=== PATIENT | female | born 1960 | race Caucasian/White ===

== ENCOUNTER 2017-09-30 16:13 | Emergency (ER) | payer OTHER, MEDICAID, SELFPAY ==
[2017-09-30 16:17] VITALS: BP 149/81; PULSE 70; RESP 14; TEMP 37.3; O2SAT 96; BMI 32.8
--- NOTE | 2017-09-30 16:27 | DI.RAD.S_ITS ---
PROCEDURE: XR CHEST 1V INDICATIONS: chest pain TECHNIQUE: One view of the chest was acquired. COMPARISON: [facility], , CHEST 2 VIEW, 09/19/2015, 10:26. FINDINGS: Surgical changes and devices: None. Lungs and pleura: No pleural effusions or pneumothorax. Lungs are clear. Mediastinum: Mediastinal contours appear normal. Heart size is normal. Bones and chest wall: No suspicious bony lesions. Overlying soft tissues appear unremarkable. IMPRESSION: No acute cardiopulmonary pathology. Dictated by: Franki Caro M.D. on 09/30/2017 at 16:46 Approved by: Franki Caro M.D. on 09/30/2017 at 16:47
[2017-09-30 16:42] LABS: Add Manual Diff / Slide Review NO; Basophils Percent Auto 1.3 % (0-2); Eosinophils Percent Auto 3.8 % (2-4); Hematocrit 43.5 % (36-46); Hemoglobin 15.2 g/dL (12.0-16.0); Lymphocytes Percent Auto 25.8 % (25-40); Mean Corpuscular HGB Conc 34.9 % (30-36); Mean Corpuscular Hemoglobin 30.7 PG (26-34); Mean Corpuscular Volume 87.9 fL (80-100); Monocytes Percent Auto 5.8 % (3-14); Neutrophils Absolute Auto 6800 /uL (3000-5900); Neutrophils Percent Auto 63.3 % (50-75); Platelet Count 320 X10^3/uL (150-400); Red Blood Cell Count 4.95 X10^6/uL (4.0-5.2); Red Cell Distribution Width 13.6 % (11.6-14.8); White Blood Cell Count 10.7 X10^3/uL (4.5-11.0)
[2017-09-30 16:52] LABS: RBC Urine 5-10/HPF (0-5/HPF)
[2017-09-30 16:53] LABS: Amorphous Sediment Urine 2+; Bacteria Urine Many (>30); Culture Indicated Urine Cult Not Indicated; Squamous Epithelial Cell Urine 5-10 /HPF; WBC Urine 1-5/HPF (0-5/HPF)
[2017-09-30 16:59] LABS: Prothrombin Time 11.1 SECONDS (10.1-12.7)
[2017-09-30 17:02] LABS: Alanine Aminotransferase 25 IU/L (9-52); Albumin 4.4 g/dL (3.5-5.0); Albumin Globulin Ratio 1.8 (1.0-2.8); Alkaline Phosphatase 57 U/L (38-126); Aspartate Aminotransferase 24 IU/L (14-36); Bilirubin Total 0.5 mg/dL (0.2-1.3); Blood Urea Nitrogen 14 mg/dL (7-17); Calcium 9.3 mg/dL (8.4-10.2); Carbon Dioxide 26 mmol/L (22-32); Chloride 102 mmol/L (98-107); Creatine Kinase 102 U/L (30-135); Estimated Glomerular Filt Rate > 60.0 mL/min (>60); Globulin 2.4 g/dL (1.7-4.1); Glucose 103 mg/dL (70-100); HEMOLYSIS 35 (0-50); Lipase 107 U/L (23-300); PTT Partial Thromboplastin Tim 25 SECONDS (26.4-36.2); Potassium 3.9 mmol/L (3.4-5.1); Sodium 142 mmol/L (137-145); Total Protein 6.8 g/dL (6.3-8.2)
[2017-09-30 17:17] LABS: CKMB % Relative Index 1.3 % (1.5-5.0); Creatine Kinase MB 1.32 ng/mL (<2.37)
[2017-09-30 17:19] LABS: Troponin I < 0.012 ng/mL (0.01-0.034)
[2017-09-30 17:32] VITALS: BP 126/78; PULSE 60; RESP 25; TEMP 36.7; O2SAT 96
--- NOTE | 2017-09-30 18:42 | ED.CHESTPAIN ---
HPI - Chest Pain General Chief Complaint: Chest Pain Stated Complaint: SENT BY DR RIVAS Time Seen by Provider: 09/30/17 16:20 Source: patient Mode of arrival: ambulatory Limitations: no limitations History of Present Illness HPI narrative: Patient presents to the emergency department today with a chief complaint of sharp and stabbing left-sided chest pain yesterday. Her pain lasted perhaps an hour or so and was very intense, sharp and stabbing and involved her left shoulder. She had period of nausea and was quite sweaty for the duration. She decided to lay down and take a nap upon waking she was largely asymptomatic. She felt well throughout the course of the night and has had no symptoms today. When she called her primary care provider there were no openings and she was directed to the emergency department. She denies other symptoms such as dizziness, weakness or lightheadedness. complaint: chest pain Onset (ago): day(s) Duration: now resolved Onset: during rest Pain location: left chest Severity: mild Quality: sharp Pain radiation: LUE Relieving factors: nothing Exacerbating factors: nothing Context: recent illness Associated symptoms: dyspnea Treatments prior to arrival chest pain: none Related Data Home Medications Medication Instructions Recorded Confirmed No Known Home Medications 09/30/17 09/30/17 Allergies Allergy/AdvReac Type Severity Reaction Status Date / Time ondansetron [ONDANSETRON] Allergy Unknown Verified 09/30/17 16:21 Review of Systems Review of Systems All systems reviewed & are unremarkable except as noted in HPI and below Constitutional Denies chills, Denies fever(s), Denies lethargy and Denies weakness Eyes Denies change in vision, Denies eye discharge, Denies irritation and Denies loss of vision ENT Ears, Nose, Mouth, and Throat: Denies change in voice, Denies neck pain and Denies sore throat Cardiovascular Reports chest pain, Denies irregular heart rhythm, Denies lightheadedness, Denies palpitations, Denies dyspnea, Denies dyspnea on exertion and Denies orthopnea Respiratory Denies cough, Denies dyspnea, Denies dyspnea on exertion and Denies wheezing Gastrointestinal Gastrointestinal: Denies abdominal pain, Denies change in bowel habits, Denies diarrhea, Denies nausea and Denies vomiting Genitourinary Denies hematuria, Denies flank pain, Denies urinary incontinence and Denies urinary urgency Musculoskeletal Denies neck pain Integumentary/Breasts Denies pruritus, Denies erythema, Denies rash and Denies wounds Neurologic Denies confusion, Denies loss of vision and Denies weakness Psychiatric Denies anxiety, Denies confusion, Denies depression, Denies homicidal ideation and Denies suicidal ideation Endocrine Denies palpitations Hematologic/Lymphatic Denies easy bruising Allergic/Immunologic Denies wheezing PFSH Family History Grandmother Cancer Hypertension Hyperlipidemia Mother Age: 76 Hypertension Social History Smoking Status: Current every day smoker Exam Initial Vital Signs Initial Vital Signs: Vital Signs Temperature 99.2 F 09/30/17 16:17 Pulse Rate 70 09/30/17 16:17 Respiratory Rate 14 09/30/17 16:17 Blood Pressure 149/81 H 09/30/17 16:17 Pulse Oximetry 96 09/30/17 16:17 Const General: cooperative and well developed Nutritional Appearance: well nourished Orientation: alert, awake, oriented x3 and not confused HENMT Head: normocephalic and atraumatic Ears: external ears normal and TM's normal bilaterally Nose: external nose normal and No nasal discharge Face and sinus: sinuses nontender, face symmetric, no sinus tenderness and No dry mucous membranes Mouth: oral mucosae normal and moist mucous membranes Teeth and gingiva: dentition normal Throat: tonsils normal and uvula midline Eyes General: appearance normal, both eyes and all related structures Eyelids: eyelids normal Conjunctivae: conjunctivae normal Sclera: sclerae normal Pupils: PERRL EOM: EOM intact bilaterally Neck Neck: normal visual inspection, trachea midline, No lymphadenopathy, No midline deformity and No JVD Lymphatic: No lymphedema Chest Chest: normal inspection of the chest Resp Effort & Inspection: normal respiratory effort, able to speak in complete sentences, no respiratory distress and no use of accessory muscles Auscultation: clear to auscultation bilaterally, no rales, no rhonchi and no wheezes Cardio Rate: regular rate Rhythm: regular rhythm Heart Sounds: no click, no gallops, no murmurs and no rubs Pulses: normal peripheral pulses GI Inspection: non-distended Palpation: soft, no hepatosplenomegaly, No guarding, No pulsatile mass and No tender Auscultation: normal bowel sounds Back/Spine/Pelvis Back: No CVA tenderness Cervical Spine: cervical ROM normal and No pain with cervical ROM Thoracic/Lumbar Spine: thoracic and lumbar spine normal to inspection Skin General: no rashes or lesions noted, No jaundice and No petechiae Neuro General: alert, oriented x3, gait normal and no focal motor deficits Speech: speech normal Extrem General: full ROM, no clubbing, cyanosis or edema, no pedal edema and no calf tenderness Psych Appearance: well kempt Mental Status: mental status grossly normal Attitude: cooperative Thought Content: normal and suicidality Judgment: judgment good Scores HEART Score Heart Score history: Slightly Suspicious Heart Score EKG: Normal Heart Score Age: 45-64 years old Heart Score risk factors: No known risk factors Heart Score troponin: < or = to normal limit Heart Score Total: 1 Course Orders Ordered: Discontinued Medications Aspirin (Aspirin Chew) 324 mg PO NOW ONE Stop: 09/30/17 16:27 Vital Signs - 8 hr 09/30/17 16:17 09/30/17 17:32 Temperature 99.2 F 98.1 F Pulse Rate 70 60 Respiratory Rate 14 25 H Blood Pressure 149/81 H Blood Pressure [Left Arm] 126/78 H Pulse Oximetry 96 96 MDM - Chest Pain Lab Data Result diagrams: 09/30/17 16:35 09/30/17 16:35 Lab Results 09/30/17 09/30/17 09/30/17 Range/Units 16:20 16:35 16:35 WBC 10.7 (4.5-11.0) X10^3/uL RBC 4.95 (4.0-5.2) X10^6/uL Hgb 15.2 (12.0-16.0) g/dL Hct 43.5 (36-46) % MCV 87.9 (80-100) fL MCH 30.7 (26-34) PG MCHC 34.9 (30-36) % RDW 13.6 (11.6-14.8) % Plt Count 320 (150-400) X10^3/uL Neut % (Auto) 63.3 (50-75) % Lymph % (Auto) 25.8 (25-40) % [place] % (Auto) 5.8 (3-14) % Eos % (Auto) 3.8 (2-4) % Baso % (Auto) 1.3 (0-2) % Neut # (Auto) 6800 H (2971-9223) /uL PT 11.1 (10.1-12.7) SECONDS INR 1.0 (0.9-1.3) APTT 25 L (26.4-36.2) SECONDS Sodium (137-145) mmol/L Potassium (3.4-5.1) mmol/L Chloride (98-107) mmol/L Carbon Dioxide (22-32) mmol/L BUN (7-17) mg/dL Creatinine (0.52-1.04) mg/dL Estimated GFR (>60) mL/min BUN/Creatinine Ratio (6-22) Glucose (70-100) mg/dL Calcium (8.4-10.2) mg/dL Total Bilirubin (0.2-1.3) mg/dL AST (14-36) IU/L ALT (9-52) IU/L Alkaline Phosphatase (38-126) U/L Total Creatine Kinase (30-135) U/L CK-MB (CK-2) (<2.37) ng/mL CK-MB (CK-2) Rel Index (1.5-5.0) % Troponin I (0.01-0.034) ng/mL Total Protein (6.3-8.2) g/dL Albumin (3.5-5.0) g/dL Globulin (1.7-4.1) g/dL Albumin/Globulin Ratio (1.0-2.8) Lipase (23-300) U/L Urine RBC 5-10/hpf H (0-5/HPF) Urine WBC 1-5/hpf (0-5/HPF) Ur Squamous Epith Cells 5-10 /hpf H Amorphous Sediment 2+ Urine Bacteria Many (>30) H (None) Ur Culture Indicated? Cult not indicated Micro UA Comment Not Reportable 09/30/17 Range/Units 16:35 WBC (4.5-11.0) X10^3/uL RBC (4.0-5.2) X10^6/uL Hgb (12.0-16.0) g/dL Hct (36-46) % MCV (80-100) fL MCH (26-34) PG MCHC (30-36) % RDW (11.6-14.8) % Plt Count (150-400) X10^3/uL Neut % (Auto) (50-75) % Lymph % (Auto) (25-40) % [place] % (Auto) (3-14) % Eos % (Auto) (2-4) % Baso % (Auto) (0-2) % Neut # (Auto) (0930-7780) /uL PT (10.1-12.7) SECONDS INR (0.9-1.3) APTT (26.4-36.2) SECONDS Sodium 142 (137-145) mmol/L Potassium 3.9 (3.4-5.1) mmol/L Chloride 102 (98-107) mmol/L Carbon Dioxide 26 (22-32) mmol/L BUN 14 (7-17) mg/dL Creatinine 0.70 (0.52-1.04) mg/dL Estimated GFR > 60.0 (>60) mL/min BUN/Creatinine Ratio 20.0 (6-22) Glucose 103 H (70-100) mg/dL Calcium 9.3 (8.4-10.2) mg/dL Total Bilirubin 0.5 (0.2-1.3) mg/dL AST 24 (14-36) IU/L ALT 25 (9-52) IU/L Alkaline Phosphatase 57 (38-126) U/L Total Creatine Kinase 102 (30-135) U/L CK-MB (CK-2) 1.32 (<2.37) ng/mL CK-MB (CK-2) Rel Index 1.3 L (1.5-5.0) % Troponin I < 0.012 (0.01-0.034) ng/mL Total Protein 6.8 (6.3-8.2) g/dL Albumin 4.4 (3.5-5.0) g/dL Globulin 2.4 (1.7-4.1) g/dL Albumin/Globulin Ratio 1.8 (1.0-2.8) Lipase 107 (23-300) U/L Urine RBC (0-5/HPF) Urine WBC (0-5/HPF) Ur Squamous Epith Cells Amorphous Sediment Urine Bacteria (None) Ur Culture Indicated? Micro UA Comment Discharge Plan Departure Patient Disposition: Home Clinical Impression: Atypical chest pain Discharge Date/Time: 09/30/17 19:17 Interventions: ED Discharge Assessment Last Done: 09/30/17 19:17 Instructions: DI for Atypical Chest Pain Activity Restrictions/Additional Instructions: *You have been diagnosed with [ atypical chest pain ] *What to do: * continue to take medications as directed *Follow up with your primary care provider in 2-3 days, call for an appointment. Let them know you were seen in the Emergency Department and that we ask that you be seen in follow up *Return to ER if you should have any new, worsening or concerning symptoms Prescriptions: No Action No Known Home Medications RF: 0
[2017-09-30 19:17] VITALS: BP 115/92; PULSE 62; RESP 18; O2SAT 100
== END 2017-09-30 19:17 | disposition home or self-care (01) ==
PROVIDERS: Emergency Provider Emergency Medicine; Family Provider Family Medicine; PCP Family Medicine
DX: R07.89 Other chest pain (principal)
CPT/HCPCS: 71045; 80053; 81003; 81015; 82550; 82553; 83690; 84484; 85025; 85610; 85730; 93005; 93010; 99282; 99285

== ENCOUNTER 2019-04-10 21:55 | Emergency (ER) | payer OTHER, SELFPAY ==
--- NOTE | 2019-04-10 22:07 | DI.RAD.S_ITS ---
PROCEDURE: XR CHEST 2V INDICATIONS: chest pain TECHNIQUE: 2 views of the chest were acquired. COMPARISON: [facility], , XR CHEST 1V, 09/30/2017, 16:40. FINDINGS: Surgical changes and devices: None. Lungs and pleura: Lungs are clear. No pleural effusions or pneumothorax. Mediastinum: Mediastinal contours are normal. Heart size is normal. Bones and chest wall: No suspicious bony abnormalities. Soft tissues appear unremarkable. IMPRESSION: No evidence acute pulmonary process. Dictated by: Fili Jonas M.D. on 04/11/2019 at 8:20 Approved by: Fili Jonas M.D. on 04/11/2019 at 8:21
[2019-04-10 22:27] VITALS: BP 159/75; PULSE 75; RESP 20; TEMP 37.3; O2SAT 99
[2019-04-10 22:36] LABS: Add Manual Diff / Slide Review NO; Basophils Absolute Auto 100 /uL (0-100); Basophils Percent Auto 0.6 % (0-2); Eosinophils Absolute Auto 500 /uL (0-450); Hemoglobin 15.4 g/dL (12.0-16.0); Lymphocytes Absolute Auto 900 /uL (1100-4500); Lymphocytes Percent Auto 7.9 % (25-40); Mean Corpuscular HGB Conc 34.9 % (30-36); Mean Corpuscular Hemoglobin 30.1 PG (26-34); Mean Corpuscular Volume 86.3 fL (80-100); Monocytes Absolute Auto 500 /uL (0-900); Monocytes Percent Auto 4.8 % (3-14); Neutrophils Absolute Auto 9400 /uL (1500-7000); Neutrophils Percent Auto 82.7 % (50-75); Platelet Count 297 X10^3/uL (150-400); Red Cell Distribution Width 13.8 % (11.6-14.8); White Blood Cell Count 11.4 X10^3/uL (4.5-11.0)
[2019-04-10 22:42] LABS: Alanine Aminotransferase 35 IU/L (<35); Albumin 4.8 g/dL (3.5-5.0); Albumin Globulin Ratio 1.5 (1.0-2.8); Alkaline Phosphatase 59 U/L (38-126); Aspartate Aminotransferase 33 IU/L (14-36); BUN Creatinine Ratio 18.3 (6-22); Bilirubin Total 0.4 mg/dL (0.2-1.3); Blood Urea Nitrogen 11 mg/dL (7-17); Calcium 9.6 mg/dL (8.4-10.2); Carbon Dioxide 29 mmol/L (22-32); Chloride 103 mmol/L (98-107); Estimated Glomerular Filt Rate > 60.0 mL/min (>60); Globulin 3.1 g/dL (1.7-4.1); Glucose 129 mg/dL (70-100); HEMOLYSIS 43 (0-50); Lipase 113 U/L (23-300); Potassium 3.8 mmol/L (3.4-5.1); Sodium 141 mmol/L (137-145); Total Protein 7.9 g/dL (6.3-8.2)
[2019-04-10 22:52] LABS: Influenza A - CEPHEID Flu A NEGATIVE (NEGATIVE); Influenza B - CEPHEID Flu B NEGATIVE (NEGATIVE)
[2019-04-10 22:54] LABS: Troponin I < 0.012 ng/mL (0.01-0.034)
--- NOTE | 2019-04-10 23:08 | ED_ITS ---
HPI - Chest Pain General Chief Complaint: Chest Pain Stated Complaint: states severe chest pain, SOB, also sick Time Seen by Provider: 04/10/19 22:56 Source: patient Mode of arrival: Ambulatory History of Present Illness HPI narrative: 58-year-old otherwise healthy woman presents with chest pain, fever, myalgias and mild diaphoresis. Symptoms started over the course of today and have worsened. Her was recently diagnosed with a viral illness however her symptomatology seems to be different than his. She has a slight dry nonproductive cough. She is slightly nauseated, fevers, cough, no actual emesis or diarrhea. No abdominal pain. She describes feeling of pressure over her chest and a sense that she is dyspneic however oxygen saturations are at 95% or greater on room air. She has no lower extremity edema, and no orthopnea. Related Data Home Medications Medication Instructions Recorded Confirmed No Known Home Medications 09/30/17 11/04/17 Allergies Allergy/AdvReac Type Severity Reaction Status Date / Time ondansetron [ONDANSETRON] Allergy Unknown Verified 11/04/17 11:27 Review of Systems Review of Systems Narrative: All systems reviewed and are unremarkable except as noted in HPI and below Patient History Medical History (Updated 04/11/19 @ 02:25 by Shayna Li MD) No active medical problems (Acute) Social History Smoking Status: Former smoker alcohol intake: current (1 beer/month) Smoking Status: Former smoker alcohol intake frequency: 0-2 drinks per day Substance Use Type: does not use Exam Narrative Exam Narrative: General: Ill appearing but in no acute distress. Able to give a complete and coherent history. Well-nourished well-developed HEENT: Dry mucous membranes, normal sclera with reactive pupils, Neck: No JVD, supple, no cervical adenopathy Respiratory: Lungs are clear to auscultation, no wheezing no rales no rhonchi. Full and symmetrical air movement Cardiac: Regular rate and rhythm no murmurs no bruits Abdomen: Soft nontender good bowel tones, no flank pain Skin: Flushed, dry, no rashes Neurologic: Grossly neurologically intact with no obvious asymmetries or abnormalities Extremities: No trauma, well perfused Psych: Cooperative, appropriate insight and affect Initial Vital Signs Initial Vital Signs: Vital Signs Temperature 99.1 F 02/23/20 22:27 Pulse Rate 75 04/10/19 22:27 Respiratory Rate 20 04/10/19 22:27 Blood Pressure 159/75 H 04/10/19 22:27 Pulse Oximetry 99 04/10/19 22:27 Course Orders Ordered: ED Orders 04/10/19 22:07 XR chest 2V Stat 04/10/19 22:09 EKG-12 Lead Stat 04/10/19 22:15 Influenza A & B (PCR) Stat 04/10/19 22:25 Complete Blood Count AUTO DIFF Stat Comprehensive Metabolic Panel Stat Lipase Stat Troponin I Stat Discontinued Medications Acetaminophen (Tylenol) 325 mg PO NOW ONE Stop: 04/10/19 23:20 Last Admin: 04/10/19 23:47 Dose: 325 mg Documented by: MARINA Ibuprofen (Advil) 400 mg PO NOW ONE Stop: 04/10/19 23:20 Last Admin: 04/10/19 23:46 Dose: 400 mg Documented by: MARINA Metoclopramide HCl (Reglan) 10 mg PO NOW ONE Stop: 04/10/19 23:24 Last Admin: 04/10/19 23:46 Dose: 10 mg Documented by: MARINA Vital Signs Vital signs: Vital Signs - 8 hr 04/10/19 22:27 04/10/19 23:14 Temperature 99.1 F Pulse Rate 75 76 Respiratory Rate 20 26 H Blood Pressure [Left Arm] 159/75 H 169/75 H Pulse Oximetry 99 95 MDM - Chest Pain Lab Data Result diagrams: 04/10/19 22:25 04/10/19 22:25 Labs: Lab Results 04/10/19 04/10/19 04/10/19 Range/Units 22:15 22:25 22:25 WBC 11.4 H (4.5-11.0) X10^3/uL RBC 5.10 (4.0-5.2) X10^6/uL Hgb 15.4 (12.0-16.0) g/dL Hct 44.0 (36-46) % MCV 86.3 (80-100) fL MCH 30.1 (26-34) PG MCHC 34.9 (30-36) % RDW 13.8 (11.6-14.8) % Plt Count 297 (150-400) X10^3/uL Neut % (Auto) 82.7 H (50-75) % Lymph % (Auto) 7.9 L (25-40) % [place] % (Auto) 4.8 (3-14) % Eos % (Auto) 4.0 (2-4) % Baso % (Auto) 0.6 (0-2) % Neut # (Auto) 9400 H (8327-5641) /uL Lymph # (Auto) 900 L (3943-2382) /uL [place] # (Auto) 500 (0-900) /uL Eos # (Auto) 500 H (0-450) /uL Baso # (Auto) 100 (0-100) /uL Sodium 141 (137-145) mmol/L Potassium 3.8 (3.4-5.1) mmol/L Chloride 103 (98-107) mmol/L Carbon Dioxide 29 (22-32) mmol/L BUN 11 (7-17) mg/dL Creatinine 0.60 (0.52-1.04) mg/dL Estimated GFR > 60.0 (>60) mL/min BUN/Creatinine Ratio 18.3 (6-22) Glucose 129 H (70-100) mg/dL Calcium 9.6 (8.4-10.2) mg/dL Total Bilirubin 0.4 (0.2-1.3) mg/dL AST 33 (14-36) IU/L ALT 35 H (<35) IU/L Alkaline Phosphatase 59 (38-126) U/L Troponin I < 0.012 (0.01-0.034) ng/mL Total Protein 7.9 (6.3-8.2) g/dL Albumin 4.8 (3.5-5.0) g/dL Globulin 3.1 (1.7-4.1) g/dL Albumin/Globulin Ratio 1.5 (1.0-2.8) Lipase 113 (23-300) U/L Influenza A (RT-PCR) Flu a negative (NEGATIVE) Influenza B (RT-PCR) Flu b negative (NEGATIVE) Imaging Data Chest x-ray: Attestation: I personally reviewed and interpreted this imaging study as follows: My Impression: No acute changes, no consolidative findings, no hemopneumothorax, normal cardiac silhouette ECG Data Attestation: I personally reviewed and interpreted this ECG as follows: Interpretation: Normal sinus rhythm at a rate of 77. No acute ischemic changes, normal axis normal intervals. MDM Narrative Medical decision making narrative: Patient presents with viral type symptoms without evidence of pneumonia, acute coronary syndrome, pulmonary embolism, pneumothorax or sepsis. Flu swabs are both negative. With myalgias that she is experiencing that are better after ibuprofen a viral syndrome remains most likely explanation. Discharge Plan Departure Patient Disposition: Home Clinical Impression: Acute viral syndrome Discharge Date/Time: 04/10/19 23:58 Instructions: DI for Viral Syndrome Activity Restrictions/Additional Instructions: Thank you for coming in today Your lab work, clinical exam, and chest x-ray also just a viral syndrome. There is no evidence of heart attack, blood clots, collapsed lung, overwhelming pneumonia or other severe infection. You clearly do have a virus. It is going to take 7-10 days for you to completely heal. I would recommend 400 mg of ibuprofen and a Tylenol together every 6 hours to help with fever control as well as the aching all over and chest tightness/pressure that you are experiencing. If you develop new or worsening symptoms or feel that you are not improving or actually getting worse after 5-7 days it would be appropriate to return to the emergency room for further evaluation. I hope you heal quickly Prescriptions: No Action No Known Home Medications RF: 0 Referrals: Bea Fox DO [Primary Care Provider] -
[2019-04-10 23:14] VITALS: BP 169/75; PULSE 76; RESP 26; O2SAT 95
[2019-04-10] MEDS: IBUPROFEN 400 MG TABLET PO (23:46)
[2019-04-10] MEDS: METOCLOPRAMIDE HCL 10 MG TABLET PO (23:46)
[2019-04-10] MEDS: ACETAMINOPHEN 325 MG TABLET PO (23:47)
== END 2019-04-10 23:58 | disposition home or self-care (01) ==
PROVIDERS: Emergency Provider Emergency Medicine; Family Provider Family Medicine; PCP Family Medicine
DX: B34.9 Viral infection, unspecified (principal)
CPT/HCPCS: 71046; 80053; 83690; 84484; 85025; 87502; 93005; 99283; 99285

== ENCOUNTER → 2019-10-12 07:18 | Outpatient (CLI) | payer OTHER, SELFPAY ==
[2019-10-12 08:40] LABS: Add Manual Diff / Slide Review NO; Basophils Absolute Auto 100 /uL (0-100); Basophils Percent Auto 1.2 % (0-2); Eosinophils Absolute Auto 500 /uL (0-450); Eosinophils Percent Auto 6.9 % (2-4); Hematocrit 43.9 % (36-46); Lymphocytes Absolute Auto 1900 /uL (1100-4500); Mean Corpuscular HGB Conc 34.1 % (30-36); Mean Corpuscular Hemoglobin 29.8 PG (26-34); Mean Corpuscular Volume 87.4 fL (80-100); Monocytes Absolute Auto 600 /uL (0-900); Monocytes Percent Auto 7.8 % (3-14); Neutrophils Absolute Auto 4800 /uL (1500-7000); Neutrophils Percent Auto 60.1 % (50-75); Platelet Count 306 X10^3/uL (150-400); Red Blood Cell Count 5.02 X10^6/uL (4.0-5.2); Red Cell Distribution Width 13.6 % (11.6-14.8); White Blood Cell Count 7.9 X10^3/uL (4.5-11.0)
[2019-10-12 08:48] LABS: Alanine Aminotransferase 31 IU/L (<35); Albumin 4.5 g/dL (3.5-5.0); Alkaline Phosphatase 56 U/L (38-126); Aspartate Aminotransferase 27 IU/L (14-36); BUN Creatinine Ratio 18.3 (6-22); Bilirubin Total 0.8 mg/dL (0.2-1.3); Blood Urea Nitrogen 13 mg/dL (7-17); Calcium 9.4 mg/dL (8.4-10.2); Carbon Dioxide 27 mmol/L (22-32); Chloride 105 mmol/L (98-107); Cholesterol 186 mg/dL (140-199); Estimated Glomerular Filt Rate > 60.0 mL/min (>60); Globulin 2.3 g/dL (1.7-4.1); Glucose 97 mg/dL (70-100); HDL Cholesterol 41 mg/dL (40-60); HEMOLYSIS 16 (0-50); LDL Cholesterol Calculated 116 mg/dL (<100); Potassium 4.2 mmol/L (3.4-5.1); Sodium 140 mmol/L (137-145); Total Protein 6.8 g/dL (6.3-8.2); Triglycerides 143 mg/dL (35-150)
[2019-10-12 09:18] LABS: TSH w/ Reflex to FT4 1.93 uIU/mL (0.47-4.68)
== END ==
PROVIDERS: Family Provider Family Medicine; PCP Family Medicine; Referring Provider Family Medicine; Visit Provider Family Medicine
DX: Z13.220 Encounter for screening for lipoid disorders (principal); Z13.228 Encounter for screening for other metabolic disorders; Z76.89 Persons encountering health services in other specified circumstances; Z13.29 Encounter for screening for other suspected endocrine disorder
CPT/HCPCS: 36415; 80053; 80061; 84443; 85025

== ENCOUNTER 2023-06-24 23:16 | Observation (INO) | payer SELFPAY ==
[2023-06-24 23:23] VITALS: BP 197/91; PULSE 78; RESP 20; TEMP 37; O2SAT 94; BMI 34.4
--- NOTE | 2023-06-24 23:30 | DI.RAD.S_ITS ---
PROCEDURE: XR CHEST 1V INDICATIONS: chest pain TECHNIQUE: One view of the chest was acquired. COMPARISON: [facility], CR, XR CHEST 2V, 04/10/2019, 22:28. [facility], CR, XR CHEST 1V, 09/30/2017, 16:40. FINDINGS: Surgical changes and devices: None. Lungs and pleura: No dense consolidation or pleural effusion. Mediastinum: Normal heart size. Cardiomediastinal contours are unchanged Bones and chest wall: Unremarkable IMPRESSION: No acute radiographic abnormality on this limited single view study Dictated by: Glen Sims M.D. on 06/25/2023 at 0:18 Approved by: Glen Sims M.D. on 06/25/2023 at 0:19
[2023-06-24 23:40] VITALS: PULSE 66
[2023-06-24] MEDS: ASPIRIN 81 MG CHEW TAB 324 MG PO (23:43)
[2023-06-24 23:50] VITALS: BP 168/77; PULSE 64; RESP 23; O2SAT 96
[2023-06-24 23:54] LABS: Add Manual Diff / Slide Review NO; Basophils Absolute Auto 100 /uL (0-100); Basophils Percent Auto 1.3 % (0-2); Eosinophils Absolute Auto 500 /uL (0-450); Eosinophils Percent Auto 5.1 % (2-4); Hematocrit 43.9 % (36-46); Lymphocytes Absolute Auto 2600 /uL (1100-4500); Lymphocytes Percent Auto 26.5 % (25-40); Mean Corpuscular HGB Conc 34.1 % (30-36); Mean Corpuscular Volume 87.9 fL (80-100); Monocytes Absolute Auto 700 /uL (0-900); Monocytes Percent Auto 7.1 % (3-14); Neutrophils Absolute Auto 6000 /uL (1500-7000); Platelet Count 355 X10^3/uL (150-400); Red Blood Cell Count 4.99 X10^6/uL (4.0-5.2); Red Cell Distribution Width 13.9 % (11.6-14.8)
[2023-06-25] VITALS (23 sets, daily range): BP systolic 106–171; BP diastolic 42–83; PULSE 50–69; RESP 15–29; TEMP 36.1–36.6; O2SAT 91–99; BMI 36.8
[2023-06-25 00:06] LABS: INR 0.9 (0.9-1.3); Prothrombin Time 10.8 SECONDS (9.4-12.5)
[2023-06-25 00:09] LABS: PTT Partial Thromboplastin Tim 33 SECONDS (25.1-36.5)
[2023-06-25 00:12] LABS: Alanine Aminotransferase 27 IU/L (<35); Albumin 4.7 g/dL (3.5-5.0); Albumin Globulin Ratio 1.8 (1.0-2.8); Alkaline Phosphatase 69 U/L (38-126); Aspartate Aminotransferase 29 IU/L (14-36); Bilirubin Total 0.5 mg/dL (0.2-1.3); Blood Urea Nitrogen 13 mg/dL (7-17); Calcium 9.5 mg/dL (8.4-10.2); Carbon Dioxide 26 mmol/L (22-32); Chloride 105 mmol/L (98-107); Creatine Kinase 137 U/L (30-135); Estimated Glomerular Filt Rate > 60 mL/min (>60); Globulin 2.6 g/dL (1.7-4.1); Glucose 145 mg/dL (80-110); HEMOLYSIS 23 (0-50); Lipase 108 U/L (23-300); Potassium 3.5 mmol/L (3.4-5.1); Sodium 139 mmol/L (137-145); Total Protein 7.3 g/dL (6.3-8.2)
--- NOTE | 2023-06-25 00:18 | PC.NURSE ---
Patient having 3/10 left side chest pressure at this time, giving nitroglycerin, see MAR.
[2023-06-25] MEDS: NITROGLYCERIN 0.4 MG SL TAB SL (00:21)
[2023-06-25 00:24] LABS: Troponin I < 0.012 ng/mL (0.01-0.034)
--- NOTE | 2023-06-25 00:32 | PC.NURSE ---
After receiving 1st dose of nitrogycerin SL, patient is severely light headed. Chest pressure improved to a 1/10. patient layed flat.
--- NOTE | 2023-06-25 00:55 | ED_ITS ---
HPI - Chest Pain General Chief Complaint: Chest Pain Stated Complaint: thinks she had heart attack Time Seen by Provider: 06/25/23 00:38 Source: patient Mode of arrival: Ambulatory History of Present Illness HPI narrative: 63-year-old female with no known coronary artery disease has had intermittent episodes of precordial chest discomfort/tightness sensation for the last 2 weeks, so the day today since early afternoon it has been more frequent and longer induration, occasionally associated with nausea, no diaphoresis, sometimes radiates to her left shoulder and around back to the scapula. No injury trauma or new activities, no cough fevers or chills. Pain is not worse with inspiration or with arm or truncal movements. She denies pain to either arm, neck, jaw, abdomen, legs. She did try an inhaler which did not help, she did not try any oral antacids or other medications. She has not taken any aspirin today. She recalls having a stress test 15 years ago, no other cardiac testing recalled. She has cardiac risk factors of smoking for the last 20 years at half pack per day, has mother and father family history of heart attacks but at older ages, and denies other cardiac risk factors of diabetes and hyperlipidemia and hypertension. Related Data Previous Rx's Medication Instructions Recorded naproxen 500 mg tablet 500 mg PO BID #30 tabs 07/19/19 lisinopril 10 1 tab PO DAILY #90 tabs 09/21/19 mg-hydrochlorothiazide 12.5 mg tablet trazodone 50 mg tablet 50 mg PO BEDTIME #90 tabs 09/21/19 Allergies Allergy/AdvReac Type Severity Reaction Status Date / Time ondansetron [ONDANSETRON] Allergy Unknown Verified 07/19/19 13:53 Review of Systems Review of Systems Narrative: As per HPI Patient History Medical History Insomnia Hypertension Pedal edema No active medical problems Family History Grandmother Cancer Hypertension Hyperlipidemia Mother Age: 82 Hypertension Social History Smoking Status: Current every day smoker alcohol intake: current (1 beer/month) Smoking Status: Current every day smoker tobacco type: cigarettes alcohol intake frequency: holidays/special occasions only Substance Use Type: marijuana Exam Initial Vital Signs Initial Vital Signs: Vital Signs Temperature 98.6 F 06/24/23 23:23 Pulse Rate 78 06/24/23 23:23 Respiratory Rate 20 06/24/23 23:23 Blood Pressure 197/91 H 06/24/23 23:23 Pulse Oximetry 94 06/24/23 23:23 Oxygen Delivery Method Room Air 06/24/23 23:23 Const General: cooperative HENOR Head: atraumatic Face and sinus: face symmetric Eyes Eyelids: eyelids normal Conjunctivae: conjunctivae normal Sclera: sclerae normal Chest Chest: normal inspection of the chest Resp Effort & Inspection: normal respiratory effort and no respiratory distress Auscultation: clear to auscultation bilaterally Cardio Rate: regular rate Rhythm: regular rhythm GI Inspection: non-distended Palpation: No tender Back/Spine/Pelvis Back: No CVA tenderness Skin General: no rashes or lesions noted and No jaundice Neuro General: patient alert and no focal motor deficits Speech: speech normal Extrem General: no calf tenderness Psych Appearance: well kempt Attitude: cooperative Thought Content: normal Course Course Decision to Admit Date: 06/25/23 Decision to Admit time: 05:28 Orders Ordered: ED Orders 06/24/23 23:30 XR chest 1V Stat EKG-12 Lead Stat 06/24/23 23:46 Complete Blood Count AUTO DIFF Stat Comprehensive Metabolic Panel Stat Lipase Stat Magnesium Stat PTT Partial Thromboplastin Vijay Stat Prothrombin Time INR Stat Troponin & CK Cardiac Panel Stat 06/25/23 00:15 D Dimer Stat 06/25/23 01:44 CT angio chest Stat 06/25/23 04:20 Trop I [Troponin I] Stat Acetaminophen (Acetaminophen 325 Mg Tablet) 650 mg PO Q6H PRN PRN Reason: Fever/Mild Pain (1-3) Al Hydrox/Mg Hydrox/Simethicone (Mag Hydrox/Alum/Simeth 30 Ml Udc) 30 ml PO Q6HR PRN PRN Reason: Dyspepsia Enoxaparin Sodium (Enoxaparin 40 Mg/0.4 Ml Syringe) 40 mg SUBCUT DAILY [facility] Hydrochlorothiazide (Hydrochlorothiazide 25 Mg Tablet) 12.5 mg PO DAILY [facility] Lisinopril (Lisinopril 10 Mg Tablet) 10 mg PO DAILY [facility] Magnesium Hydroxide (Magnesium Hydroxide 30 Ml Udc) 30 ml PO DAILY PRN PRN Reason: Constipation Morphine Sulfate (Morphine 4 Mg/Ml Inj) 3 mg IV Q2HR KIRBY Naloxone HCl (Naloxone 0.4 Mg/Ml Vial) 0.2 mg IV Q2MIN PRN PRN Reason: Opiate Reversal Nitroglycerin (Nitroglycerin 0.4 Mg Sl Tab) 0.4 mg SL [id number] PRN PRN Reason: Chest Pain Last Admin: 06/25/23 00:21 Dose: 0.4 mg Documented By: HOWARD Nitroglycerin (Nitroglycerin 0.4 Mg Sl Tab) 0.4 mg SL [id number] PRN PRN Reason: Chest Pain Trazodone HCl (Trazodone 50 Mg Tablet) 50 mg PO BEDTIME KIRBY Discontinued Medications Aspirin (Aspirin 81 Mg Chew Tab) 324 mg PO NOW ONE Stop: 06/24/23 23:31 Last Admin: 06/24/23 23:43 Dose: 324 mg Documented By: ARIA Sodium Chloride (Normal Saline 0.9%) 500 mls @ 1,000 mls/hr IV BOLUS ONE Stop: 06/25/23 01:45 Last Infusion: 06/25/23 02:07 Dose: Infused Documented By: Admin: 06/25/23 01:21 Dose: 1,000 mls/hr Documented By: HOWARD Sodium Chloride (Normal Saline 0.9%) 1,000 mls @ 1,000 mls/hr IV BOLUS ONE Stop: 06/25/23 02:43 Last Infusion: 06/25/23 03:29 Dose: Infused Documented By: Admin: 06/25/23 02:19 Dose: 1,000 mls/hr Documented By: HOWARD Methylprednisolone (Methylprednisolone 125 Mg/2 Ml Vial) 125 mg IV NOW ONE Stop: 06/25/23 03:08 Last Admin: 06/25/23 03:09 Dose: Not Given Documented By: HOWARD Reevaluation(s) Reevaluation #1: Chest pain stuttering for last couple of weeks, increased frequency today, EKG without obvious ischemic changes, initial troponin negative. Patient had sublingual nitroglycerin single dose, resolved her chest pain, but also reduced her blood pressure, IV fluid bolus ordered, blood pressure improved. Chest x- ray without acute changes, see radiologist's report. D-dimer pending, we will repeat interval troponin Reevaluation #2: CTA chest with IV contrast. Impressions: ?No pulmonary embolism, aortic dissection or aneurysm. Incidental findings as detailed. ? See radiology report. Reevaluation #3: Repeat troponin also negative. No recurrence of chest pain. . Consultations Consultation #1: Phone consultation with Cardiology on-call Dr. Barlow, patient has multiple risk factor and stuttering increasing chest discomfort, has concerns this may represent unstable angina, would advise admission for stress testing. She will consult. Patient is agreeable to this plan. We will contact hospitalist regarding admission Time: 05:25 Consultation #2: Case discussed with hospitalist Dr. Marin, who accepts patient for admission to observation Vital Signs Vital signs: Vital Signs - 8 hr 06/24/23 23:23 06/24/23 23:40 06/24/23 23:50 Temperature 98.6 F Pulse Rate 78 66 64 Respiratory Rate 20 23 Blood Pressure 197/91 H Pulse Oximetry 94 96 Oxygen Delivery Method Room Air Room Air 06/24/23 23:50 06/25/23 00:00 06/25/23 00:00 Temperature Pulse Rate 65 Respiratory Rate 24 Blood Pressure 168/77 H 153/71 H Pulse Oximetry 94 Oxygen Delivery Method Room Air 06/25/23 00:21 06/25/23 00:25 06/25/23 00:25 Temperature Pulse Rate 62 69 Respiratory Rate 23 Blood Pressure 153/71 H 139/66 Pulse Oximetry 91 Oxygen Delivery Method 06/25/23 00:30 06/25/23 00:30 06/25/23 00:36 Temperature Pulse Rate 62 55 L Respiratory Rate 29 H 24 Blood Pressure 124/61 Pulse Oximetry 92 94 Oxygen Delivery Method Room Air 06/25/23 00:36 06/25/23 01:00 06/25/23 01:01 Temperature Pulse Rate 55 L 55 L Respiratory Rate 23 24 Blood Pressure 117/54 L Pulse Oximetry 91 91 Oxygen Delivery Method Room Air 06/25/23 01:01 06/25/23 01:30 06/25/23 01:30 Temperature Pulse Rate 57 L Respiratory Rate 25 H Blood Pressure 112/55 L 121/58 L Pulse Oximetry 95 Oxygen Delivery Method Room Air 06/25/23 02:00 06/25/23 02:01 06/25/23 02:01 Temperature Pulse Rate 59 L 55 L Respiratory Rate 22 23 Blood Pressure 106/53 L Pulse Oximetry 92 93 Oxygen Delivery Method Room Air Room Air 06/25/23 02:30 06/25/23 04:17 06/25/23 04:18 Temperature Pulse Rate 59 L Respiratory Rate 29 H Blood Pressure 141/60 H Pulse Oximetry 94 Oxygen Delivery Method 06/25/23 04:18 Temperature Pulse Rate 53 L Respiratory Rate 20 Blood Pressure Pulse Oximetry 95 Oxygen Delivery Method Room Air MDM - Chest Pain Differential Diagnosis Differential diagnosis: Likely unstable angina pectoris, atypical chest pain, chest pain and other (Pulmonary embolus, pneumonia, pleurisy, early zoster, aortic dissection/aneurysm, referred pain from GI source, other.) Lab Data 06/24/23 23:46 06/24/23 23:46 Labs: Lab Results 06/24/23 06/25/23 Range/Units 23:46 04:20 WBC 10.0 (4.5-11.0) X10^3/uL RBC 4.99 (4.0-5.2) X10^6/uL Hgb 15.0 (12.0-16.0) g/dL Hct 43.9 (36-46) % MCV 87.9 (80-100) fL MCH 30.0 (26-34) PG MCHC 34.1 (30-36) % RDW 13.9 (11.6-14.8) % Plt Count 355 (150-400) X10^3/uL Neut % (Auto) 60.0 (50-75) % Lymph % (Auto) 26.5 (25-40) % [place] % (Auto) 7.1 (3-14) % Eos % (Auto) 5.1 H (2-4) % Baso % (Auto) 1.3 (0-2) % Neut # (Auto) 6000 (5021-7718) /uL Lymph # (Auto) 2600 (2452-6163) /uL [place] # (Auto) 700 (0-900) /uL Eos # (Auto) 500 H (0-450) /uL Baso # (Auto) 100 (0-100) /uL PT 10.8 (9.4-12.5) SECONDS INR 0.9 (0.9-1.3) APTT 33 (25.1-36.5) SECONDS D-Dimer 502 H (<500) ng/ml Sodium 139 (137-145) mmol/L Potassium 3.5 (3.4-5.1) mmol/L Chloride 105 (98-107) mmol/L Carbon Dioxide 26 (22-32) mmol/L BUN 13 (7-17) mg/dL Creatinine 0.62 (0.52-1.04) mg/dL Estimated GFR > 60 (>60) mL/min BUN/Creatinine Ratio 21.0 (6-22) Glucose 145 H (80-110) mg/dL Calcium 9.5 (8.4-10.2) mg/dL Magnesium 2.0 (1.6-2.3) mg/dL Total Bilirubin 0.5 (0.2-1.3) mg/dL AST 29 (14-36) IU/L ALT 27 (<35) IU/L Alkaline Phosphatase 69 (38-126) U/L Total Creatine Kinase 137 H (30-135) U/L Troponin I < 0.012 < 0.012 (0.01-0.034) ng/mL Total Protein 7.3 (6.3-8.2) g/dL Albumin 4.7 (3.5-5.0) g/dL Globulin 2.6 (1.7-4.1) g/dL Albumin/Globulin Ratio 1.8 (1.0-2.8) Lipase 108 (23-300) U/L ECG Data Attestation: I personally reviewed and interpreted this ECG as follows: Prior ECG tracings: not available for review Interpretation: Normal sinus rhythm with rate of 71, normal intervals, some movement artifact noted in leads V1 and V4. No obvious ST segment elevation or depression changes. Normal MN and QRS intervals, normal QTC. Critical Care Time Critical Care Time Total Critical Care Time: 35 Discharge Plan Departure Patient Disposition: Admitted as Observation Clinical Impression: Unstable angina pectoris Chest pain Qualifiers: Chest pain type: unspecified Qualified Code(s): R07.9 - Chest pain, unspecified Admit Date/Time: 06/25/23 05:44 Admit Provider: Ebenezer Collazo
[2023-06-25 01:20] LABS: D Dimer 502 ng/ml (<500)
[2023-06-25] MEDS: SODIUM CHLORIDE 0.9% 500 ML 1000 ML IV (01:21)
--- NOTE | 2023-06-25 01:44 | DI.CT.S_ITS ---
PROCEDURE: CT ANGIO CHEST INDICATIONS: chest pain TECHNIQUE: After the administration of intravenous contrast, 2 mm thick sections acquired from the pulmonary apices to the posterior costophrenic angles. 3-dimensional maximum intensity projection (MIP) coronal and sagittal reformats were then acquired through the thorax. For radiation dose reduction, the following was used: automated exposure control, adjustment of mA and/or kV according to patient size. COMPARISON: [facility], CT, ABDOMEN/PELVIS WITH CONTRAST, 03/21/2014, 11:59. FINDINGS: Image quality: Diagnostic. Pulmonary arteries: Pulmonary arteries are normal in size, and demonstrate no intraluminal filling defects to suggest central pulmonary embolism. Lower Neck: No enlarged lymph nodes. Thyroid: No thyroid nodules which require sonographic follow up, per consensus guidelines. Axillae: No enlarged lymph nodes. Chest Wall: Unremarkable. Bones: Unremarkable. Lungs and Pleura: No pneumothorax or pleural effusions. No consolidation or suspicious nodules. Heart: Heart size is normal. No pericardial effusion. Thoracic Vessels: No aortic aneurysm. Mediastinum and [place]en: No enlarged lymph nodes. Esophagus: No wall thickening. Small hiatal hernia. Upper Abdomen: Cholecystectomy. Stable central mesenteric fat stranding. IMPRESSION: No pulmonary embolus. No acute cardiopulmonary process. Agree with preliminary report. Dictated by: Omid Lay M.D. on 06/25/2023 at 8:12 Approved by: Omid Lay M.D. on 06/25/2023 at 8:15
[2023-06-25] MEDS: SODIUM CHLORIDE 0.9% 1,000 ML 1000 ML IV (02:19)
[2023-06-25 04:49] LABS: Troponin I < 0.012 ng/mL (0.01-0.034)
--- NOTE | 2023-06-25 06:43 | DI.ECHO.S_ITS ---
[facility]+ [facility] : : [id number] : : [place] : : [id number] : : Phone: [phone] Echocardiogram Report + :Name: RAFAL JACOBO Study Date: 06/25/2023 Height: 67 in : :Hospital ReadingLocation: Weight: 220 lb : : Gender: Female BSA: 2.1 m2 : :: 1960 Age: 63 yrs BP: 171/77 mmHg: :Reason For Study: SUSPECTED WALL MOTION ABNORMALITITES : :Ordering Physician: KOLE CHING, : :LISA GROSS Performed By: Sari Goff : :Referring: LISA RODRIGUEZ MD : + Interpretation Summary The ejection fraction is estimated to be 55-60%. There is no significant valvular heart disease. Procedure: A two-dimensional transthoracic echocardiogram with color flow and Doppler was performed. The study quality was technically adequate. There is no prior echocardiogram noted for this patient. The patient was in sinus bradycardia with heart rates between 45-62 bpm during the exam. Left Ventricle: The left ventricle is normal in size and wall thickness. The ejection fraction is estimated to be 55-60%. There are no obvious focal wall motion abnormalities noted but poor endocardial definition reduces the sensitivity for the detection of such. Right Ventricle: The right ventricle is normal in size and function. Atria: The left atrial size is normal. Right atrial size is normal. There is no Doppler evidence for an interatrial shunt. Mitral Valve: The mitral valve is normal in structure and function. There is trace mitral regurgitation. Aortic Valve: The aortic valve is trileaflet. There is no aortic valve stenosis. No aortic regurgitation is present. Tricuspid Valve: The tricuspid valve is normal in structure and function. There is a trace or physiologic amount of tricuspid regurgitation. Pulmonic Valve: The pulmonic valve is not well seen, but is grossly normal. There is no pulmonic valvular regurgitation. Great Vessels: The aortic root is normal size. The dimensions of the ascending aorta are normal. The IVC is of normal diameter and collapses greater than 50% with a sniff. This suggests a low right atrial pressure of 3 mm Hg. Pericardium/ Pleura There is no pericardial effusion. There is an anterior echo-free space consistent with a fat pad. There is no pleural effusion. MMode/2D Measurements & Calculations LVIDd: 4.8 cm LVOT diam: 2.0 cm LVIDs: 3.1 cm Ao root diam: 2.9 cm FS: 35.2 % asc Aorta Diam: 3.4 cm IVSd: 1.0 cm Ao Arch Diam (Prox Trans): 3.0 cm LVPWd: 0.96 cm LV thurston. diameter/BSA (cm/m^2): 2.3 LV sys. diameter/BSA (cm/m^2): 1.5 LA A2 area: 21.4 cm2 RA long axis: 5.4 cm LA A4 area: 21.0 cm2 RA area: 15.5 cm2 LA length (vol): 5.9 cm RA vol: 37.6 ml LA vol: 64.3 ml RA : 17.9 ml/m2 LA vol index: 30.5 ml/m2 IVC diam: 2.0 cm RVD1 (basal): 3.8 cm RVD2 (mid): 2.8 cm TAPSE: 2.3 cm Doppler Measurements & Calculations Ao V2 max: 129.0 cm/sec LVOT Max Kiel: 109.5 cm/sec Ao V2 mean: 91.3 cm/sec LV V1 max P.8 mmHg Ao max P.7 mmHg LV V1 VTI: 30.1 cm Ao mean P.7 mmHg JOAO(I,D): 3.0 cm2 Ao V2 VTI: 32.3 cm JOAO(V,D): 2.8 cm2 sev ratio: 0.93 JOAO indexed to BSA (cm^2/m^2): 1.4 MV E max kiel: 65.3 cm/sec PA V2 max: 72.5 cm/sec MV A max kiel: 54.6 cm/sec PA V2 mean: 50.0 cm/sec MV E/A: 1.2 PA mean P.1 mmHg Med Peak E' Kiel: 6.9 cm/sec PA pr(Accel): 22.5 mmHg E/E' med: 9.4 Lat Peak E' Kiel: 6.7 cm/sec E/E' lat: 9.8 E/e' average: 9.6 MV dec time: 0.27 sec SV(LVOT): 98.2 ml Reading Physician:12:02 PM
--- NOTE | 2023-06-25 06:45 | P.HP_ITS ---
History of Present Illness History of Present Illness Date Patient Seen: 06/25/23 Time Patient Seen: 06:00 Date of Onset of Symptoms: 06/11/23 Chief complaint: chest pain Narrative: 63 y/o with PMH of HTN, smoking, presented to ED with substernal chest pain, episodic, lasting anywhere from 2-3 minutes to 45 minutes - yesterday, usually non-radiating, occasionally extend to Lt arm. It started approximately 2 weeks ago and she had almost daily occurrence of pain and shortness of breath. No additional symptoms. Can't think of any triggers, such as exertion. In the ED initial workup negative for PE or ACS. Consulted corporate attorney Dr Barlow recommended stress testing. Placed in observation. [facility] Medical History Insomnia Hypertension Pedal edema No active medical problems Family History Grandmother Cancer Hypertension Hyperlipidemia Mother Age: 82 Hypertension Social History Smoking Status: Current every day smoker alcohol intake: current (1 beer/month) Meds Home Medications and Allergies Home Medications Medication Instructions Recorded Confirmed Type naproxen 500 mg tablet 500 mg PO BID #30 tabs 07/19/19 09/21/19 Rx lisinopril 10 1 tab PO DAILY #90 tabs 09/21/19 09/21/19 Rx mg-hydrochlorothiazide 12.5 mg tablet trazodone 50 mg tablet 50 mg PO BEDTIME #90 tabs 09/21/19 09/21/19 Rx Allergies Allergy/AdvReac Type Severity Reaction Status Date / Time ondansetron [ONDANSETRON] Allergy Unknown Verified 07/19/19 13:53 Review of Systems Constitutional Comments: w/o fever, chills, sweating Cardiovascular Comments: see HPI Respiratory Comments: short of breath during episodes of chest pain Gastrointestinal Comments: w/o complaints Genitourinary Comments: w/o voiding difficulties Musculoskeletal Comments: w/o MSK chest wall or left shoulder pain Exam Vital Signs (past 8 hours): - 06/24/23 23:23 06/24/23 23:40 06/24/23 23:50 Temperature 98.6 F Pulse Rate 78 66 64 Respiratory Rate 20 23 Blood Pressure 197/91 H Pulse Oximetry 94 96 Oxygen Delivery Method Room Air Room Air 06/24/23 23:50 06/25/23 00:00 06/25/23 00:00 Temperature Pulse Rate 65 Respiratory Rate 24 Blood Pressure 168/77 H 153/71 H Pulse Oximetry 94 Oxygen Delivery Method Room Air 06/25/23 00:21 06/25/23 00:25 06/25/23 00:25 Temperature Pulse Rate 62 69 Respiratory Rate 23 Blood Pressure 153/71 H 139/66 Pulse Oximetry 91 Oxygen Delivery Method 06/25/23 00:30 06/25/23 00:30 06/25/23 00:36 Temperature Pulse Rate 62 55 L Respiratory Rate 29 H 24 Blood Pressure 124/61 Pulse Oximetry 92 94 Oxygen Delivery Method Room Air 06/25/23 00:36 06/25/23 01:00 06/25/23 01:01 Temperature Pulse Rate 55 L 55 L Respiratory Rate 23 24 Blood Pressure 117/54 L Pulse Oximetry 91 91 Oxygen Delivery Method Room Air 06/25/23 01:01 06/25/23 01:30 06/25/23 01:30 Temperature Pulse Rate 57 L Respiratory Rate 25 H Blood Pressure 112/55 L 121/58 L Pulse Oximetry 95 Oxygen Delivery Method Room Air 06/25/23 02:00 06/25/23 02:01 06/25/23 02:01 Temperature Pulse Rate 59 L 55 L Respiratory Rate 22 23 Blood Pressure 106/53 L Pulse Oximetry 92 93 Oxygen Delivery Method Room Air Room Air 06/25/23 02:30 06/25/23 04:17 06/25/23 04:18 Temperature Pulse Rate 59 L Respiratory Rate 29 H Blood Pressure 141/60 H Pulse Oximetry 94 Oxygen Delivery Method 06/25/23 04:18 06/25/23 05:46 06/25/23 05:48 Temperature Pulse Rate 53 L 51 L Respiratory Rate 20 24 Blood Pressure Pulse Oximetry 95 96 96 Oxygen Delivery Method Room Air Room Air 06/25/23 05:48 06/25/23 06:00 06/25/23 06:01 Temperature Pulse Rate 50 L 50 L Respiratory Rate 18 22 Blood Pressure 166/77 H Pulse Oximetry 95 95 Oxygen Delivery Method Room Air 06/25/23 06:01 Temperature Pulse Rate Respiratory Rate Blood Pressure 171/77 H Pulse Oximetry Oxygen Delivery Method Oxygen Delivery Method Room Air Const Other: Sitting in bed in no distress HENMT Other: Normocephalic, oral crowding Neck Other: Supple Resp Other: CTA Cardio Other: RRR, w/o murmurs GI Other: abdomen not distended Skin Other: w/o rashes Neuro Other: w/o deficits Extrem Other: minimal bipedal edema Psych Other: Lucid, appropriate mood, not anxious Objective ECG Impression: NSR, w/o ischemic changes Labs 06/24/23 23:46 06/24/23 23:46 Labs: Laboratory Results - last 24 hr 06/24/23 06/25/23 23:46 04:20 WBC 10.0 RBC 4.99 Hgb 15.0 Hct 43.9 MCV 87.9 MCH 30.0 MCHC 34.1 RDW 13.9 Plt Count 355 Neut % (Auto) 60.0 Lymph % (Auto) 26.5 [place] % (Auto) 7.1 Eos % (Auto) 5.1 H Baso % (Auto) 1.3 Neut # (Auto) 6000 Lymph # (Auto) 2600 [place] # (Auto) 700 Eos # (Auto) 500 H Baso # (Auto) 100 PT 10.8 INR 0.9 APTT 33 D-Dimer 502 H Sodium 139 Potassium 3.5 Chloride 105 Carbon Dioxide 26 BUN 13 Creatinine 0.62 Estimated GFR > 60 BUN/Creatinine Ratio 21.0 Glucose 145 H Calcium 9.5 Magnesium 2.0 Total Bilirubin 0.5 AST 29 ALT 27 Alkaline Phosphatase 69 Total Creatine Kinase 137 H Troponin I < 0.012 < 0.012 Total Protein 7.3 Albumin 4.7 Globulin 2.6 Albumin/Globulin Ratio 1.8 Lipase 108 Assessment & Plan Assessment and plan (1) Chest pain: Qualifiers: Chest pain type: unspecified Qualified Code(s): R07.9 - Chest pain, unspecified Status: Acute (2) Hypertension: Status: Acute (3) Obesity: Status: Acute (4) Smoker: Status: Acute (5) Insomnia: Status: Acute Assessment & Plan narrative: 1. Chest Pain - could be accelerated angina with multiple risk factors - uncontrolled HTN, smoking, obesity, positive family history - placed in observation on telemetry, ECHO pending - cardiology recommended stress test - TSH, lipids, A1C pending 2. HTN / bipedal edema - Lisinopril / HCTZ 3. Insomnia - Trazodone DVT prophylaxis - Lovenox
--- NOTE | 2023-06-25 08:29 | DI.NM.S_ITS ---
PROCEDURE: NM EXERCISE TREADMILL NON NUC COMPARISON: None. INDICATIONS: chest pain FINDINGS: The patient exercised for 5 minutes and 31 seconds reaching 76% of maximum predicted heart rate. Hypertensive response to exercise (resting BP 128/90mmHg, max BP 202/100mmHg). Fair exercise capacity (7.0METs, MARKUS +1%). No angina during the study. Resting ECG showed sinus rhythm with non-specific T wave changes. There were mild horizontal ST depressions in the anterolateral leads during recovery. IMPRESSION: Intermediate risk stress test with no angina. Mild horizontal ST depressions in the anterolateral leads during recovery. Average exercise capacity (MARKUS +1%). While only 75% of maximum predicted heart rate was reached, double product was over [id number], suggesting adequate stress test. Recommend treadmill nuclear stress test for further evaluation. Dictated by: Jose De Jesus Monroe MD on 06/25/2023 at 13:40 Approved by: Jose De Jesus Monroe MD on 06/25/2023 at 13:46
[2023-06-25] MEDS: hydroCHLOROthiazide 25 MG TABLET 12.5 MG PO (08:55)
[2023-06-25] MEDS: ENOXAPARIN 40 MG/0.4 ML SYRINGE SUBCUT (08:55)
[2023-06-25] MEDS: lisinopriL 10 MG TABLET PO (08:56)
[2023-06-25 09:10] LABS: Cholesterol 174 mg/dL (140-199); HDL Cholesterol 36 mg/dL (40-60); Hemoglobin A1C% w Est Avg Glu 6.1 % (4.0-6.0); LDL Cholesterol Calculated 117 mg/dL (<100); Triglycerides 104 mg/dL (35-150)
--- NOTE | 2023-06-25 16:39 | DI.NM.S_ITS ---
PROCEDURE: NM MARIAN PERF SPECT R&S PHARM Rest and pharmacological stress myocardial perfusion SPECT with gated imaging and ejection fraction RADIOPHARMACEUTICAL: 8.7 mCi Tc-99m tetrafosmin IV at rest and 26.9 mCi Tc-99m tetrafosmin IV at peak effect of pharmacological stress. [id number] was performed. INDICATIONS: intermediate risk treadmill TECHNIQUE: Radiopharmaceutical was injected at peak stress test, and also at rest. SPECT images were obtained. SPECT myocardial perfusion images were displayed in short axis, horizontal long axis, and vertical long axis views. Gated images were reviewed using [employer] software. COMPARISON: None. CARDIAC STRESS: A pharmacologic stress test was performed under the supervision of an attending staff, using an infusion of regadenoson 0.4 mg IV. Hemodynamic data: There is normal blood pressure and heart rate response to pharmacologic stress. Symptoms: The patient denied anginal chest pain. EKG: No diagnostic changes of ischemia; no ectopy. FINDINGS: Raw data: There is good myocardial uptake of radiotracer. No significant motion artifacts. Qtdc-fp-nzjof ratio is 0.4 (normal is less than 0.38 for tetrafosmin tracer). Left ventricle function: Gated images demonstrate normal left ventricular wall thickening. No segmental wall motion abnormalities. No transient ischemic dilation; TID is 1.13 (normal less than 1.3). Left ventricle resting end diastolic volume is 103 mL. Left ventricle stress ejection fraction is >75%; normal range is above 45%. Myocardial perfusion: There is normal distribution of activity in the right and left ventricular myocardium. No fixed or reversible perfusion defects. IMPRESSION: Low risk study. No evidence of pharmacologic induced ischemia or scar. Normal LV size with hyperdynamic function. Dictated by: Renee Caputo D.O. on 06/26/2023 at 12:57 Approved by: Renee Caputo D.O. on 06/26/2023 at 13:00
--- NOTE | 2023-06-25 20:25 | P.HP_ITS ---
History of Present Illness History of Present Illness Date Patient Seen: 06/25/23 Time Patient Seen: 16:00 Date of Onset of Symptoms: 06/11/23 Chief complaint: chest pain Narrative: Per overnight provider, 63 y/o with PMH of HTN, smoking, presented to ED with substernal chest pain, episodic, lasting anywhere from 2-3 minutes to 45 minutes - yesterday, usually non-radiating, occasionally extend to Lt arm. It started approximately 2 weeks ago and she had almost daily occurrence of pain and shortness of breath. No additional symptoms. Can't think of any triggers, such as exertion. In the ED initial workup negative for PE or ACS. Consulted news clipping cutter Dr Barlow recommended stress testing. Placed in observation. Patient was admitted initially by overnight provider as noted above. She does not normally take antihypertensive medications, smokes about 1/2 ppd. Echocardiogram performed today which showed normal EF with no WMA, treadmill testing was determined to be intermediate risk. Upon my interview, patient felt chest pain was related to exertion as she did notice it would start after moving heavy boxes or carrying things from the car. 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 We discussed multiple options including medical management, or further risk stratification with nuclear stress testing (recommended by news clipping cutter after discussion of treadmill results today). Patient elected for further risk stratification with nuclear stress testing tomorrow. BP is improved, but she was fairly hypertensive during stress testing. Was given lisinopril and HCTZ this morning. Given her BP is normally okay reported at home, will stop HCTZ tomorrow but continue lisinopril. PFSH Medical History Insomnia Hypertension Pedal edema No active medical problems Family History Grandmother Cancer Hypertension Hyperlipidemia Mother Age: 82 Hypertension Social History household members: spouse Smoking Status: Current every day smoker alcohol intake: current Meds Home Medications and Allergies Home Medications Medication Instructions Recorded Confirmed Type No Known Home Medications 06/25/23 06/25/23 History Allergies Allergy/AdvReac Type Severity Reaction Status Date / Time ondansetron [ONDANSETRON] Allergy Unknown Verified 07/19/19 13:53 Review of Systems Review of Systems Narrative: All other systems reviewed with the patient and are negative unless otherwise stated. Exam Vital Signs (past 8 hours): - 06/25/23 13:00 06/25/23 16:00 06/25/23 20:00 Temperature 97.8 F 97.3 F L 97.6 F Pulse Rate 53 L 57 L 51 L Respiratory Rate 16 16 17 Blood Pressure 139/66 143/42 H 125/46 L Pulse Oximetry 98 99 98 Oxygen Flow Rate 0 Oxygen Delivery Method Room Air Oxygen Flow Rate 0 Narrative Exam Narrative: General:? Patient is well developed and well nourished, in no distress at this time. Chest:? Normal AP diameter and contour without kyphoscoliosis, no tachypnea, equal chest rise bilaterally. Lungs:? CTA b/l no wheezing rhonchi or rales. Cardio:?RRR no m/r/g. Abdomen: S NT ND. Musculoskeletal:? Muscle strength and tone are equal within normal limits, no deformity. Extremities: No edema or joint effusions. No cyanosis or clubbing. Skin:? Pale,? Warm to touch,dry and intact without rashes, ulcerations or petechiae.? Neuro:? Alert and orientated x3,? sensation to touch intact in all extremities, no gross deficits noted of cranial nerves. Psych:? Patient has a well-kept appearance, appropriate affect, mental status attitude thought context and judgment are appropriate for age. Objective ECG Impression: NSR. Labs 06/24/23 23:46 06/24/23 23:46 Labs: Laboratory Results - last 24 hr 06/24/23 06/25/23 06/25/23 23:46 04:20 08:27 WBC 10.0 RBC 4.99 Hgb 15.0 Hct 43.9 MCV 87.9 MCH 30.0 MCHC 34.1 RDW 13.9 Plt Count 355 Neut % (Auto) 60.0 Lymph % (Auto) 26.5 [place] % (Auto) 7.1 Eos % (Auto) 5.1 H Baso % (Auto) 1.3 Neut # (Auto) 6000 Lymph # (Auto) 2600 [place] # (Auto) 700 Eos # (Auto) 500 H Baso # (Auto) 100 PT 10.8 INR 0.9 APTT 33 D-Dimer 502 H Sodium 139 Potassium 3.5 Chloride 105 Carbon Dioxide 26 BUN 13 Creatinine 0.62 Estimated GFR > 60 BUN/Creatinine Ratio 21.0 Glucose 145 H Hemoglobin A1c 6.1 H Calcium 9.5 Magnesium 2.0 Total Bilirubin 0.5 AST 29 ALT 27 Alkaline Phosphatase 69 Total Creatine Kinase 137 H Troponin I < 0.012 < 0.012 Total Protein 7.3 Albumin 4.7 Globulin 2.6 Albumin/Globulin Ratio 1.8 Triglycerides 104 Cholesterol 174 LDL Cholesterol, Calc 117 H HDL Cholesterol 36 L Lipase 108 TSH 2.10 Assessment & Plan Assessment & Plan narrative: (1) Chest pain: - echocardiogram is unremarkable with normal EF and no WMA. - intermediate risk treadmill, recommended nuclear stress testing by cardiology - given patient's intermediate risk, concerning typical sounding symptoms, and risk factors, along with planned travel with planned heavy exertion, will perform nuclear stress testing tomorrow. Patient was advised that if abnormal she may be recommended for [facility]. - A1c 6.1% consistent with pre-diabetes - BP improved with lisinopril 10 mg and HCTZ 12.5 mg. Soft BP this evening, will stop HCTZ tomorrow. Continue lisinopril 10 mg daily. - TC 174, LDL 117, HDL 36. - TSH 2.10. (2) Hypertension: - with treadmill testing today BP was >200. Started on lisinopril HCTZ as noted above. Continue lisinopril only tomorrow. (3) Obesity: - The patient is at much higher risk for medical and surgical complications because of their obesity. This increases the difficulty and complexity of medical and surgical interventions and increases the chances of poor outcomes such as morbidity and mortality. (4) Tobacco use - advised cessation. Patient appears motivated at this time to quit. (5) Insomnia: Code: Full, surrogate is patient's spouse DVT: Lovenox daily I have utilized all available immediate resources to obtain, update, or review the patient's current medications. Dispo: patient admitted under observation status. Discharge home if stress testing is low risk tomorrow. Additional history obtained via discussions with the overnight hospitalist, and discussion with spouse, and with news clipping cutter. These discussions contributed to the creation of the above assessment and plan. I have reviewed patient's presenting documentation, labs, and imaging personally.
[2023-06-25] MEDS: TRAZODONE 50 MG TABLET PO (21:49)
[2023-06-26] VITALS: BP 108/58; PULSE 68; RESP 17; TEMP 36.3; O2SAT 96
[2023-06-26 04:00] VITALS: BP 113/40; PULSE 47; RESP 16; TEMP 36.1; O2SAT 97
[2023-06-26 09:00] VITALS: BP 141/63; PULSE 52; RESP 16; TEMP 36.6; O2SAT 98
[2023-06-26] MEDS: lisinopriL 10 MG TABLET PO (10:50)
[2023-06-26] MEDS: ENOXAPARIN 40 MG/0.4 ML SYRINGE SUBCUT (10:51)
--- NOTE | 2023-06-26 11:10 | DIET.CONS ---
Dietary Consultation Note Admission Date: 06/25/2023 05:44 Assessment: 63 y F presented with chest pain. Nutrition screened per conversation with pharmacist regarding A1c consistent with pre-diabetes. Met with pt at bedside. Pt and spouse travel often. Diet recall of 2 meals/day, items such as sandwiches, biscuits and gravy, burritos, are common. Drinks coffee with sugar and soda. Ht: 170.18 cm Wt: 106.5 kg BMI: 36.8 UBW: - Last BM: 06/23/22 (06/25/23 05:51) MNA: 14 Rajan Score: 22 Diet: 06/25/23 Breakfast Heart Healthy Diet Diet Modifications: No coffee, tea soda Nutrition Percent Meal Consumed 75% 06/25/23 18:00 Percent Meal Consumed 50% 06/25/23 08:00 Labs: RBC 4.99 X10^6/uL (4.0-5.2) 06/24/23 23:46 Hgb 15.0 g/dL (12.0-16.0) 06/24/23 23:46 Hct 43.9 % (36-46) 06/24/23 23:46 Creatinine 0.62 mg/dL (0.52-1.04) 06/24/23 23:46 Hemoglobin A1c 6.1 % (4.0-6.0) H 06/25/23 08:27 Nutrition Diagnosis: Nutrition r/t knowledge deficit r/t to no previous educ as evidenced by altered A1c of 6.1%, consistent with pre-diabetes Interventions: 1. Overview of MNT for pre-DM 2. Discussion of outpatient educ options Monitoring/Evaluations: f/u prn Electronically Signed by: Jennie Us 06/26/23 11:10 Clinical Dietitian [address] [address]
[2023-06-26 12:00] VITALS: BP 138/65; PULSE 51; RESP 16; TEMP 36.3; O2SAT 99
--- NOTE | 2023-06-26 13:15 | PM.DS.1 ---
History of Present Illness History of Present Illness Chief complaint: chest pain Narrative: Per overnight provider, 63 y/o with PMH of HTN, smoking, presented to ED with substernal chest pain, episodic, lasting anywhere from 2-3 minutes to 45 minutes - yesterday, usually non-radiating, occasionally extend to Lt arm. It started approximately 2 weeks ago and she had almost daily occurrence of pain and shortness of breath. No additional symptoms. Can't think of any triggers, such as exertion. In the ED initial workup negative for PE or ACS. Consulted regional facilities specialist Dr Barlow recommended stress testing. Placed in observation. Patient was admitted initially by overnight provider as noted above. She does not normally take antihypertensive medications, smokes about 1/2 ppd. Echocardiogram performed today which showed normal EF with no WMA, treadmill testing was determined to be intermediate risk. Upon my interview, patient felt chest pain was related to exertion as she did notice it would start after moving heavy boxes or carrying things from the car. 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 We discussed multiple options including medical management, or further risk stratification with nuclear stress testing (recommended by regional facilities specialist after discussion of treadmill results today). Patient elected for further risk stratification with nuclear stress testing tomorrow. BP is improved, but she was fairly hypertensive during stress testing. Was given lisinopril and HCTZ this morning. Given her BP is normally okay reported at home. Discharge Providers Provider Date of admission: 06/25/23 05:44 Discharge Date: 06/26/23 Primary care physician: Kash Brewer DO Discharge provider: Guru Simmons DO Summary Hospital Course Discharge Diagnosis: (1) Chest pain: - echocardiogram is unremarkable with normal EF and no WMA. - intermediate risk treadmill stress, cards recommended nuclear stress testing by cardiology - given patient's intermediate risk, concerning typical sounding symptoms, and risk factors, along with planned travel with planned heavy exertion, will perform nuclear stress - A1c 6.1% consistent with pre-diabetes - BP improved with lisinopril 10 mg and HCTZ 12.5 mg. - TC 174, LDL 117, HDL 36. - TSH 2.10. (2) Hypertension: - with treadmill testing BP was >200. - patient elected to check BP at home and have her PCP start BP meds if needed (3) Obesity: - The patient is at much higher risk for medical and surgical complications because of their obesity. This increases the difficulty and complexity of medical and surgical interventions and increases the chances of poor outcomes such as morbidity and mortality. (4) Tobacco use - advised cessation. Patient appears motivated at this time to quit. (5) Insomnia: Hospital Course: Admitted for chest pain. Echo was normal. Treadmill stress test was intermediate risk so a nuclear stress test was recommended. This returned normal and a low-risk study. Patient had high BP in the hospital, and will obtain home readings then have her PCP start BP meds if she is still high. Diagnosed with prediabetes and she will work on diet and exercise. Trops were all normal. Discharged home. Exam Vital Signs (past 8 hours): - 06/26/23 07:00 06/26/23 09:00 06/26/23 12:00 Temperature 97.8 F 97.3 F L Pulse Rate 52 L 51 L Respiratory Rate 16 16 Blood Pressure 141/63 H 138/65 Pulse Oximetry 98 99 Oxygen Delivery Method Room Air Oxygen Flow Rate 0 Oxygen Delivery Method Room Air Oxygen Flow Rate 0 Narrative Exam Narrative: General:? Patient is well developed and well nourished, in no distress at this time. Chest:? Normal AP diameter and contour without kyphoscoliosis, no tachypnea, equal chest rise bilaterally. Lungs:? CTA b/l no wheezing rhonchi or rales. Cardio:?RRR no m/r/g. Abdomen: S NT ND. Musculoskeletal:? Muscle strength and tone are equal within normal limits, no deformity. Extremities: No edema or joint effusions. No cyanosis or clubbing. Skin:? Pale,? Warm to touch,dry and intact without rashes, ulcerations or petechiae.? Neuro:? Alert and orientated x3,? sensation to touch intact in all extremities, no gross deficits noted of cranial nerves. Psych:? Patient has a well-kept appearance, appropriate affect, mental status attitude thought context and judgment are appropriate for age. Objective Labs 06/24/23 23:46 06/24/23 23:46 [facility] Medical History Insomnia Hypertension Pedal edema No active medical problems Family History Grandmother Cancer Hypertension Hyperlipidemia Mother Age: 82 Hypertension Social History household members: spouse Smoking Status: Current every day smoker alcohol intake: current Discharge Plan Discharge Plan Patient Disposition: Home Provider Discharge Comment: Your heart workup was normal including stress test, echo and heart enzymes. Please track your blood pressure and see a new PCP as you may need to start medications for high blood pressure. You want your BP to be <130-140. Discharge orders & Medications Prescriptions: No Action No Known Home Medications Follow up/Referrals: Kash Brewer DO [Primary Care Provider] - 2 Weeks Visit Report/Discharge Packet Instructions: The [employer]'s Guidelines for Women, Myocardial Perfusion Imaging, DI for High Blood Pressure, DI for Chest Pain, How to Monitor Your Blood Pressure at Home Stand Alone Forms: Patient Portal/API, Stroke Signs & Symptoms Discharge Data Primary Care Provider: Kash Brewer Attending Provider: Ebenezer Collazo Admleanne Date/Time: 06/25/23 05:44
--- NOTE | 2023-06-26 13:35 | CM.DANOTE ---
Patient is a 63 yo female who was admitted OBS Status on 06/25/23 for Chest Pain r/o. Pt has [employer] for insurance and her PCP is Dr. Kash Brewer. EMR was reviewed. Per MD, pt's Echo returned normal and to have Nuc Stress Test and then pending results can likely d/c home later today. SW met briefly bedside with pt and explained role and she confirms she lives in [facility] with her and both are active and independent at baseline and travel regularly. Pt does not use DME for ambulation and drives and denies any hx of HH or SNF. Pt confirms they have a trip planned to [place] next week where pt will be helping someone to move and plans to take it a little easier this trip. Pt's preference is to discharge home today and does not anticipate any needs at discharge and spouse can transport her home. Plan: SW to follow closely for plan of discharge home with spouse and outpt f/u and any further identified discharge planning needs. DEBBIE Conte
--- NOTE | 2023-06-26 16:38 | PC.NURSE ---
Discharge: gave pt results of her tests. She is enc to follow up with her primary care provider for hospital follow up, A1C, blood pressure. (She has not seen her PCP in 4 years.) Reviewed d/c packet. She does have a bp cuff at home and she will monitor her bp twice a day and bring the log in with her to her doctor's visit. Questions answered. Pt d/c to home via auto w/spouse.
== END 2023-06-26 14:30 | disposition home or self-care (01) ==
LOC: ED 06-25 00:38 → AC 06-25 05:46
PROVIDERS: Admitting Provider Internal Medicine; Emergency Provider Emergency Medicine; Family Provider Family Medicine; PCP Family Medicine; Referring Provider Emergency Medicine; Visit Provider Internal Medicine
DX: R07.9 Chest pain, unspecified (principal); I10 Essential (primary) hypertension; E66.9 Obesity, unspecified; F17.200 Nicotine dependence, unspecified, uncomplicated; G47.00 Insomnia, unspecified
CPT/HCPCS: 36415; 71045; 71275; 78452; 80053; 80061; 82550; 83036; 83690; 83735; 84443; 84484; 85025; 85379; 85610; 85730; 93005; 93010; 93017; 93306; 96360; 96361; 96372; 99284; 99291; G0378; A9502; J1650; J2785; Q9967